=== PATIENT | female | born 1945 | race Caucasian/White ===

== ENCOUNTER → 2023-04-13 09:50 | Outpatient (REF) | payer MEDICARE, OTHER, SELFPAY ==
[2023-04-13 10:13] LABS: % Basophils 1.5 % (0-2); % Eosinophils 4.2 % (0-6); % Immature Granulocytes 0.2 % (0-0.5); % Lymphocytes 19.5 % (20.5-51.1); % Monocytes 8.3 % (1.7-9.3); % Neutrophils 66.3 % (42.2-75.2); Absolute Basophils 0.1 10^3/uL (0-0.2); Absolute Eosinophils 0.2 10^3/uL (0-0.7); Absolute Lymphocytes 0.9 10^3/uL (1.2-3.4); Absolute Monocytes 0.4 10^3/uL (0.1-0.6); Absolute Neutrophils 3.2 10^3/uL (1.4-6.5); Hematocrit 36.6 % (37.0-47.0); Hemoglobin 11.8 g/dL (12.0-16.0); Mean Corp Hgb Conc. 32.2 g/dL (33.0-37.0); Mean Corpuscular Hgb 30.6 pg (27.0-31.0); Mean Corpuscular Volume 94.8 fL (81.0-99.0); Mean Platelet Volume 10.6 fL (7.4-10.4); Nucleated Red Blood Cells % 0 %; Platelet Count 258 10^3/uL (130-400); Red Blood Cell Count 3.86 10^6/uL (4.20-5.40); Red Cell Dist. Width 13.3 % (11.5-14.5); White Blood Cell Count 4.8 10^3/uL (4.8-10.8)
[2023-04-13 10:30] LABS: NT-proBNP 284 pg/ml
[2023-04-13 10:35] LABS: ALT (SGPT) 15 U/L (0-35); AST (SGOT) 24 U/L (14-36); Albumin 3.9 g/dl (3.5-5.0); Alkaline Phosphatase 81 U/L (38-126); Blood Urea Nitrogen 16 mg/dl (7-17); Carbon Dioxide 27 mmol/L (22-30); Chloride 108 mmol/L (98-107); Glucose 102 mg/dl (70-99); HDL Cholesterol 64 mg/dl; LDL Cholesterol, Calculated 134 mg/dl; Potassium 4.5 mmol/L (3.5-5.1); Sodium 138 mmol/L (135-145); Total Bilirubin 0.6 mg/dl (0.2-1.3); Total Cholesterol 214 mg/dl (50-199); Total Protein 6.4 g/dl (6.3-8.2); Triglyceride 84 mg/dl (10-149); Very Low Density Lipoprotein 16 mg/dl (0-30); eGFR > 60.00
[2023-04-13 10:52] LABS: Free T4 1.26 ng/dl (0.78-2.19); Vitamin D, 25-OH*** 52.3 ng/mL (30-80)
[2023-04-13 11:05] LABS: TSH 0.89 uIU/ml (0.47-4.68)
== END ==
LOC: REG 09:50
PROVIDERS: ATTENDING PHYSICIAN Nurse Practitioner Primary Care
DX: E78.2 Mixed hyperlipidemia (principal); I10 Essential (primary) hypertension; E61.1 Iron deficiency; E03.9 Hypothyroidism, unspecified; Z00.00 Encounter for general adult medical examination without abnormal findings; R06.9 Unspecified abnormalities of breathing; E55.9 Vitamin D deficiency, unspecified
CPT/HCPCS: 36415; 80053; 80061; 82306; 83880; 84439; 84443; 85025

== ENCOUNTER → 2023-05-03 08:21 | Outpatient (REF) | payer MEDICARE, OTHER, SELFPAY | LOC: RAD 08:21 | PROVIDERS: ATTENDING PHYSICIAN Nurse Practitioner Primary Care | DX: M85.80 Other specified disorders of bone density and structure, unspecified site (principal); M85.89 Other specified disorders of bone density and structure, multiple sites; Z78.0 Asymptomatic menopausal state; M41.9 Scoliosis, unspecified | CPT/HCPCS: 77080; 93306 ==

== ENCOUNTER → 2023-05-17 09:29 | Outpatient (REF) | payer MEDICARE, OTHER, SELFPAY ==
[2023-05-17 10:14] LABS: % Eosinophils 5.9 % (0-6); % Immature Granulocytes 0.4 % (0-0.5); % Lymphocytes 17.6 % (20.5-51.1); % Neutrophils 67.1 % (42.2-75.2); Absolute Basophils 0.1 10^3/uL (0-0.2); Absolute Eosinophils 0.3 10^3/uL (0-0.7); Absolute Lymphocytes 0.9 10^3/uL (1.2-3.4); Absolute Monocytes 0.4 10^3/uL (0.1-0.6); Absolute Neutrophils 3.5 10^3/uL (1.4-6.5); Hematocrit 35.2 % (37.0-47.0); Hemoglobin 11.5 g/dL (12.0-16.0); Mean Corp Hgb Conc. 32.7 g/dL (33.0-37.0); Mean Corpuscular Hgb 30.3 pg (27.0-31.0); Mean Corpuscular Volume 92.9 fL (81.0-99.0); Mean Platelet Volume 10.3 fL (7.4-10.4); Nucleated Red Blood Cells % 0 %; Platelet Count 232 10^3/uL (130-400); Red Blood Cell Count 3.79 10^6/uL (4.20-5.40); White Blood Cell Count 5.2 10^3/uL (4.8-10.8)
[2023-05-17 10:54] LABS: ALT (SGPT) 13 U/L (0-35); AST (SGOT) 22 U/L (14-36); Albumin 3.9 g/dl (3.5-5.0); Alkaline Phosphatase 73 U/L (38-126); Blood Urea Nitrogen 23 mg/dl (7-17); Calcium 9.4 mg/dl (8.4-10.2); Carbon Dioxide 27 mmol/L (22-30); Chloride 105 mmol/L (98-107); Glucose 99 mg/dl (70-99); HDL Cholesterol 64 mg/dl; Iron 96 ug/dl (37-170); LDL Cholesterol, Calculated 128 mg/dl; Potassium 4.3 mmol/L (3.5-5.1); Sodium 139 mmol/L (135-145); Total Bilirubin 0.5 mg/dl (0.2-1.3); Total Cholesterol 208 mg/dl (50-199); Total Protein 6.3 g/dl (6.3-8.2); Triglyceride 82 mg/dl (10-149); Very Low Density Lipoprotein 16 mg/dl (0-30); eGFR > 60.00
[2023-05-17 11:04] LABS: Percent Saturation 36 % (20-50); Total Iron Binding Capacity 261 ug/dl (265-497)
[2023-05-17 11:19] LABS: Ferritin 34.7 ng/ml (11.1-264.0)
[2023-05-17 12:41] LABS: Folate > 20.0 ng/ml (2.76-20); Vitamin B12 691 pg/ml (239-931)
== END ==
LOC: REG 09:29
PROVIDERS: ATTENDING PHYSICIAN Internal Medicine Hematology & Oncology; FAMILY PHYSICIAN Nurse Practitioner Primary Care
DX: C07 Malignant neoplasm of parotid gland (principal); D50.9 Iron deficiency anemia, unspecified; E78.2 Mixed hyperlipidemia; D64.9 Anemia, unspecified; I10 Essential (primary) hypertension; R73.01 Impaired fasting glucose; R53.83 Other fatigue; Z79.899 Other long term (current) drug therapy
CPT/HCPCS: 36415; 80053; 80061; 82607; 82728; 82746; 83036; 83540; 83550; 85025

== ENCOUNTER → 2023-05-29 10:28 | Outpatient (REF) | payer MEDICARE, OTHER, SELFPAY ==
[2023-05-29 12:44] LABS: Iron 88 ug/dl (37-170)
[2023-05-29 12:55] LABS: Percent Saturation 32 % (20-50); Total Iron Binding Capacity 267 ug/dl (265-497)
== END ==
LOC: REG 10:28
PROVIDERS: ATTENDING PHYSICIAN Internal Medicine Hematology & Oncology; FAMILY PHYSICIAN Internal Medicine Geriatric Medicine
DX: C07 Malignant neoplasm of parotid gland (principal); D50.9 Iron deficiency anemia, unspecified
CPT/HCPCS: 36415; 83540; 83550

== ENCOUNTER → 2023-06-05 15:48 | Outpatient (REF) | payer MEDICARE, OTHER, SELFPAY ==
[2023-06-05 11:25] LABS: % Basophils 1.1 % (0-2); % Eosinophils 4.3 % (0-6); % Immature Granulocytes 0.5 % (0-0.5); % Lymphocytes 15.8 % (20.5-51.1); % Monocytes 6.6 % (1.7-9.3); % Neutrophils 71.7 % (42.2-75.2); Absolute Basophils 0.1 10^3/uL (0-0.2); Absolute Eosinophils 0.3 10^3/uL (0-0.7); Absolute Monocytes 0.4 10^3/uL (0.1-0.6); Absolute Neutrophils 4.7 10^3/uL (1.4-6.5); Hematocrit 38.6 % (37.0-47.0); Hemoglobin 12.1 g/dL (12.0-16.0); Mean Corp Hgb Conc. 31.3 g/dL (33.0-37.0); Mean Corpuscular Volume 95.8 fL (81.0-99.0); Mean Platelet Volume 10.9 fL (7.4-10.4); Nucleated Red Blood Cells % 0 %; Platelet Count 247 10^3/uL (130-400); Red Blood Cell Count 4.03 10^6/uL (4.20-5.40); Red Cell Dist. Width 13.7 % (11.5-14.5); White Blood Cell Count 6.5 10^3/uL (4.8-10.8)
== END ==
LOC: OIDL 15:48
PROVIDERS: ATTENDING PHYSICIAN Internal Medicine Hematology & Oncology
DX: C07 Malignant neoplasm of parotid gland (principal)
CPT/HCPCS: 85025

== ENCOUNTER → 2023-06-20 06:38 | Day surgery (SDC) | payer MEDICARE, OTHER, SELFPAY | LOC: GI 06:38 | PROVIDERS: ATTENDING PHYSICIAN Surgery | DX: K21.9 Gastro-esophageal reflux disease without esophagitis (principal); K44.9 Diaphragmatic hernia without obstruction or gangrene; Q39.9 Congenital malformation of esophagus, unspecified | CPT/HCPCS: 43249 ==

== ENCOUNTER 2023-08-03 14:35 | Outpatient (RCR) | payer MEDICARE, OTHER, SELFPAY ==
[2023-08-03 14:50] VITALS: BP 136/70
[2023-08-03] MEDS: RECLAST 100 IV (15:07)
[2023-08-03 15:30] VITALS: BP 133/66
== END 2023-08-04 09:38 | disposition home or self-care (01) ==
LOC: OID 14:35
PROVIDERS: ATTENDING PHYSICIAN Nurse Practitioner Primary Care
DX: M81.0 Age-related osteoporosis without current pathological fracture (principal)
CPT/HCPCS: 96365; J3489

== ENCOUNTER 2023-08-04 06:32 | Day surgery (SDC) | payer MEDICARE, OTHER, SELFPAY | END 2023-08-04 09:26 | disposition home or self-care (01) | LOC: CATH 06:32 | PROVIDERS: ATTENDING PHYSICIAN Internal Medicine Cardiovascular Disease; FAMILY PHYSICIAN Internal Medicine Geriatric Medicine; OTHER PHYSICIAN Internal Medicine Interventional Cardiology | DX: I08.3 Combined rheumatic disorders of mitral, aortic and tricuspid valves (principal); I10 Essential (primary) hypertension; E78.2 Mixed hyperlipidemia; K21.9 Gastro-esophageal reflux disease without esophagitis; E03.9 Hypothyroidism, unspecified; G25.81 Restless legs syndrome; G47.33 Obstructive sleep apnea (adult) (pediatric); Z85.89 Personal history of malignant neoplasm of other organs and systems; Z87.891 Personal history of nicotine dependence; Z79.82 Long term (current) use of aspirin | CPT/HCPCS: 93312; 93320; 93325 ==

== ENCOUNTER → 2023-08-10 09:32 | Outpatient (REF) | payer MEDICARE, OTHER, SELFPAY | LOC: RAD 09:32 | PROVIDERS: ATTENDING PHYSICIAN Surgery; FAMILY PHYSICIAN Internal Medicine Geriatric Medicine | DX: K44.9 Diaphragmatic hernia without obstruction or gangrene (principal); K30 Functional dyspepsia | CPT/HCPCS: 74246 ==

== ENCOUNTER 2023-08-11 07:54 | Day surgery (SDC) | payer MEDICARE, OTHER, SELFPAY ==
[2023-08-11] VITALS (9 sets, daily range): BP systolic 116–133; BP diastolic 54–75; BMI 29.8
[2023-08-11] MEDS: LOW STRENGTH ASPIRIN 324 MG PO (08:34)
[2023-08-11 08:36] LABS: Hematocrit 36.6 % (37.0-47.0); Hemoglobin 11.8 g/dL (12.0-16.0); Mean Corp Hgb Conc. 32.2 g/dL (33.0-37.0); Mean Corpuscular Volume 96.1 fL (81.0-99.0); Mean Platelet Volume 10.6 fL (7.4-10.4); Platelet Count 284 10^3/uL (130-400); Red Blood Cell Count 3.81 10^6/uL (4.20-5.40); Red Cell Dist. Width 13.5 % (11.5-14.5); White Blood Cell Count 6.5 10^3/uL (4.8-10.8)
[2023-08-11] MEDS: NSS 1000 IV ×2 (08:45→11:18)
[2023-08-11 08:46] LABS: Blood Urea Nitrogen 18 mg/dl (7-17); Calcium 8.7 mg/dl (8.4-10.2); Carbon Dioxide 20 mmol/L (22-30); Chloride 111 mmol/L (98-107); Estimated Creatinine Clearance 59 ml/min; Glucose 107 mg/dl (70-99); Potassium 3.9 mmol/L (3.5-5.1); Sodium 141 mmol/L (135-145); eGFR > 60.00
--- NOTE | 2023-08-11 13:09 | ITS.CL.CATH ---
[facility] - Catheterization
Cardiac Catheterization
Procedure Report:
RIGHT AND LEFT HEART STUDY
Date of Procedure: August 11, 2023
Referring: Dr. Petros Cruz
PROCEDURES:
1. Right heart catheterization
2. Left heart catheterization with coronary and single-plane left ventriculography
INDICATION: This is a 78-year-old female with a past medical history notable for hiatal hernia, esophageal stricture, hypothyroidism, and remote parotid tumor resection in 2010. She presented to our office for evaluation of severe indigestion and
shortness of breath. An echocardiogram was performed and notable for preserved left ventricular systolic function with an estimated ejection fraction of 50%. There was MAC associated mitral stenosis with a mean gradient of 5 mmHg and moderate to
severe mitral regurgitation. She was referred for transesophageal echocardiogram given the moderate to severe mitral regurgitation noted on transthoracic echocardiogram with symptoms of shortness of breath. Her LVEF was estimated at 55%. The left
atrium was found to be moderately dilated and the mitral leaflet was notable for mild posterior leaflet restricted mobility with moderate to severe mitral regurgitation. She is now referred for right and left heart catheterization to evaluate
coronary anatomy in the setting of ongoing symptoms.
ACCESS: Right brachial vein using ultrasound guidance and placement of a 5 Mongolian sheath. Arterial access was obtained in the right radial artery with placement of a 6 Mongolian arterial sheath
HEMODYNAMICS : mmHg
RA (m) : 10
RV (s/d) : 31/7, 12
PA (s/d, m) : 27/16, 20
PCWP (m) : 14
AO (s/d, m) : 128/68, 93
LV (s/d) : 140/10
LVEDP : 24
Estimated Dmitry Cardiac Output: 5.0 L / min and Cardiac Index: 2.9 L/ min / m-2
Systemic vascular resistance: 16.6 Wood units or 1328 [id number])
Pulmonary vascular resistance: 1.2 Wood units or 96 [id number](-5)
CORONARY FINDINGS :
Dominance: Left
LEFT MAIN: Normal
LEFT ANTERIOR DESCENDING: The LAD arises normally from the left main and runs in the anterior interventricular groove. There is a 20% ostial LAD stenosis. The remainder of the LAD is widely patent with the distal vessel wrapping around the apex.
CIRCUMFLEX: The circumflex is a large-caliber dominant vessel. OM1 arises very proximally from the circumflex and is a small caliber vessel. A large bifurcating OM 2 arises from the mid circumflex and bifurcates proximally into 2 large daughter
branches. The circumflex continues in the AV groove supplying a large posterolateral branch and PDA. Only minor irregularities are present
RIGHT CORONARY ARTERY: Small nondominant
VENTRICULOGRAPHY: The digital single-plane left ventricular ejection fraction is estimated at 50%. +2-+3 mitral regurgitation is present
RADIATION SUMMARY: Fluoro Time (min): 5.4, Dose (mGy): 165, DAP (Gy.cm2) : 14.7
CONCLUSIONS
1. Compensated right and left ventricular filling pressures
2. Low normal left ventricular systolic function with +2-+3 mitral regurgitation
3. Nonobstructive coronary disease
RECOMMENDATIONS
1. Medical therapy
2. Repeat echocardiogram in 6-12-month
Copy to: Dr. Petros Cruz
== END 2023-08-11 13:45 | disposition home or self-care (01) ==
LOC: CATH 07:54
PROVIDERS: ATTENDING PHYSICIAN Internal Medicine Interventional Cardiology; FAMILY PHYSICIAN Internal Medicine Geriatric Medicine
DX: I34.0 Nonrheumatic mitral (valve) insufficiency (principal); I25.10 Atherosclerotic heart disease of native coronary artery without angina pectoris; R06.02 Shortness of breath; I11.9 Hypertensive heart disease without heart failure; E03.9 Hypothyroidism, unspecified; K21.9 Gastro-esophageal reflux disease without esophagitis; Z87.891 Personal history of nicotine dependence; Z79.82 Long term (current) use of aspirin
CPT/HCPCS: 80048; 85027; 93460; C1894; Q9967

== ENCOUNTER → 2023-09-18 14:20 | Outpatient (REF) | payer MEDICARE, OTHER, SELFPAY | LOC: RAD 14:20 | PROVIDERS: ATTENDING PHYSICIAN Internal Medicine Gastroenterology; FAMILY PHYSICIAN Internal Medicine Geriatric Medicine | DX: K59.09 Other constipation (principal) | CPT/HCPCS: 74018 ==

== ENCOUNTER → 2023-12-05 09:37 | Outpatient (REF) | payer MEDICARE, OTHER, SELFPAY | LOC: RCS 09:37 | PROVIDERS: ATTENDING PHYSICIAN Internal Medicine Interventional Cardiology; FAMILY PHYSICIAN Nurse Practitioner Primary Care | DX: R06.09 Other forms of dyspnea (principal); I34.9 Nonrheumatic mitral valve disorder, unspecified | CPT/HCPCS: 93017; 93320; 93325; 93350 ==

== ENCOUNTER → 2023-12-06 10:06 | Outpatient (REF) | payer MEDICARE, OTHER, SELFPAY ==
[2023-12-06 11:01] LABS: % Basophils 1.4 % (0-2); % Eosinophils 7.2 % (0-6); % Immature Granulocytes 0.2 % (0-0.5); % Lymphocytes 16.9 % (20.5-51.1); % Monocytes 9.5 % (1.7-9.3); % Neutrophils 64.8 % (42.2-75.2); Absolute Basophils 0.1 10^3/uL (0-0.2); Absolute Eosinophils 0.4 10^3/uL (0-0.7); Absolute Lymphocytes 0.8 10^3/uL (1.2-3.4); Absolute Monocytes 0.5 10^3/uL (0.1-0.6); Absolute Neutrophils 3.2 10^3/uL (1.4-6.5); Hematocrit 38.9 % (37.0-47.0); Hemoglobin 12.4 g/dL (12.0-16.0); Mean Corp Hgb Conc. 31.9 g/dL (33.0-37.0); Mean Corpuscular Hgb 29.7 pg (27.0-31.0); Mean Corpuscular Volume 93.1 fL (81.0-99.0); Mean Platelet Volume 10.8 fL (7.4-10.4); Nucleated Red Blood Cells % 0 %; Platelet Count 272 10^3/uL (130-400); Red Blood Cell Count 4.18 10^6/uL (4.20-5.40); Red Cell Dist. Width 13.1 % (11.5-14.5)
[2023-12-06 12:42] LABS: Iron 100 ug/dl (37-170)
[2023-12-06 12:52] LABS: Percent Saturation 46 % (20-50); Total Iron Binding Capacity 216 ug/dl (265-497)
== END ==
LOC: REG 10:06
PROVIDERS: ATTENDING PHYSICIAN Internal Medicine Hematology & Oncology; FAMILY PHYSICIAN Nurse Practitioner Primary Care
DX: C07 Malignant neoplasm of parotid gland (principal); D50.9 Iron deficiency anemia, unspecified
CPT/HCPCS: 36415; 82728; 83540; 83550; 85025

== ENCOUNTER 2024-02-21 06:44 | Day surgery (SDC) | payer MEDICARE, OTHER, SELFPAY ==
[2024-02-21 12:08] VITALS: BMI 28.4
[2024-02-21 12:09] VITALS: BP 135/69
[2024-02-21 13:33] VITALS: BP 114/61
[2024-02-21 13:45] VITALS: BP 138/82
[2024-02-21 13:55] VITALS: BP 145/76
== END 2024-02-21 14:05 | disposition home or self-care (01) ==
LOC: SDS 06:44
PROVIDERS: ATTENDING PHYSICIAN Surgery
DX: K22.2 Esophageal obstruction (principal); K20.90 Esophagitis, unspecified without bleeding; K21.9 Gastro-esophageal reflux disease without esophagitis; K44.9 Diaphragmatic hernia without obstruction or gangrene
CPT/HCPCS: 43249; C1726

== ENCOUNTER → 2024-04-08 08:50 | Outpatient (REF) | payer MEDICARE, OTHER, SELFPAY | LOC: RCS 08:50 | PROVIDERS: ATTENDING PHYSICIAN Internal Medicine Interventional Cardiology; FAMILY PHYSICIAN Nurse Practitioner Primary Care | DX: I34.0 Nonrheumatic mitral (valve) insufficiency (principal); R06.09 Other forms of dyspnea | CPT/HCPCS: 93306 ==

== ENCOUNTER → 2024-04-16 10:08 | Outpatient (REF) | payer MEDICARE, OTHER, SELFPAY ==
[2024-04-16 11:38] LABS: Glycohemoglobin (HgbA1c) 5.6 % (4.0-5.6)
[2024-04-16 15:37] LABS: ALT (SGPT) 14 U/L (0-35); AST (SGOT) 22 U/L (14-36); Albumin 4.4 g/dl (3.5-5.0); Alkaline Phosphatase 69 U/L (38-126); Blood Urea Nitrogen 22 mg/dl (7-17); Calcium 9.1 mg/dl (8.4-10.2); Carbon Dioxide 24 mmol/L (22-30); Chloride 104 mmol/L (98-107); Glucose 92 mg/dl (70-99); HDL Cholesterol 61 mg/dl; LDL Cholesterol, Calculated 157 mg/dl; Potassium 4.3 mmol/L (3.5-5.1); Sodium 140 mmol/L (135-145); Total Bilirubin 0.7 mg/dl (0.2-1.3); Total Cholesterol 231 mg/dl (50-199); Total Protein 6.7 g/dl (6.3-8.2); Triglyceride 67 mg/dl (10-149); Very Low Density Lipoprotein 13 mg/dl (0-30); eGFR 57.31
== END ==
LOC: REG 10:08
PROVIDERS: ATTENDING PHYSICIAN Nurse Practitioner Primary Care
DX: E78.2 Mixed hyperlipidemia (principal); R73.03 Prediabetes
CPT/HCPCS: 36415; 80053; 80061; 83036

== ENCOUNTER → 2024-04-26 11:49 | Outpatient (REF) | payer MEDICARE, OTHER, SELFPAY ==
[2024-04-26 13:23] LABS: HDL Cholesterol 61 mg/dl; LDL Cholesterol, Calculated 129 mg/dl; Total Cholesterol 210 mg/dl (50-199); Triglyceride 101 mg/dl (10-149); Very Low Density Lipoprotein 20 mg/dl (0-30)
[2024-04-26 14:30] LABS: Folate > 20.0 ng/ml (2.76-20); Vitamin B12 580 pg/ml (239-931)
== END ==
LOC: REG 11:49
PROVIDERS: ATTENDING PHYSICIAN Nurse Practitioner Primary Care
DX: E78.2 Mixed hyperlipidemia (principal); Z79.899 Other long term (current) drug therapy
CPT/HCPCS: 36415; 80061; 82607; 82746; 83735

== ENCOUNTER → 2024-05-10 09:31 | Outpatient (REF) | payer MEDICARE, OTHER, SELFPAY ==
[2024-05-10 10:06] LABS: % Eosinophils 4.8 % (0-6); % Immature Granulocytes 0.2 % (0-0.5); % Lymphocytes 17.6 % (20.5-51.1); % Monocytes 8.8 % (1.7-9.3); % Neutrophils 67.6 % (42.2-75.2); Absolute Basophils 0.1 10^3/uL (0-0.2); Absolute Eosinophils 0.3 10^3/uL (0-0.7); Absolute Lymphocytes 0.9 10^3/uL (1.2-3.4); Absolute Monocytes 0.5 10^3/uL (0.1-0.6); Absolute Neutrophils 3.6 10^3/uL (1.4-6.5); Hematocrit 36.3 % (37.0-47.0); Hemoglobin 11.9 g/dL (12.0-16.0); Mean Corp Hgb Conc. 32.8 g/dL (33.0-37.0); Mean Corpuscular Hgb 31.3 pg (27.0-31.0); Mean Corpuscular Volume 95.5 fL (81.0-99.0); Mean Platelet Volume 10.6 fL (7.4-10.4); Nucleated Red Blood Cells % 0 %; Platelet Count 186 10^3/uL (130-400); Red Cell Dist. Width 13.3 % (11.5-14.5); White Blood Cell Count 5.2 10^3/uL (4.8-10.8)
[2024-05-10 10:32] LABS: Iron 111 ug/dl (37-170)
[2024-05-10 10:42] LABS: Percent Saturation 50 % (20-50); Total Iron Binding Capacity 219 ug/dl (265-497)
[2024-05-10 10:55] LABS: Free T4 1.23 ng/dl (0.78-2.19); Vitamin D, 25-OH*** 74.3 ng/mL (30-80)
[2024-05-10 11:08] LABS: TSH 1.86 uIU/ml (0.47-4.68)
== END ==
LOC: REG 09:31
PROVIDERS: ATTENDING PHYSICIAN Internal Medicine Hematology & Oncology; FAMILY PHYSICIAN Nurse Practitioner Primary Care
DX: C07 Malignant neoplasm of parotid gland (principal); D50.9 Iron deficiency anemia, unspecified; E03.9 Hypothyroidism, unspecified; E55.9 Vitamin D deficiency, unspecified; K21.00 Gastro-esophageal reflux disease with esophagitis, without bleeding; K22.4 Dyskinesia of esophagus
CPT/HCPCS: 36415; 82306; 82728; 83540; 83550; 84439; 84443; 85025

== ENCOUNTER → 2024-08-10 08:04 | Outpatient (REF) | payer MEDICARE, OTHER, SELFPAY ==
[2024-08-10 09:06] LABS: ALT (SGPT) 15 U/L (0-35); AST (SGOT) 21 U/L (14-36); Albumin 4.2 g/dl (3.5-5.0); Alkaline Phosphatase 51 U/L (38-126); Blood Urea Nitrogen 26 mg/dl (7-17); Calcium 9.1 mg/dl (8.4-10.2); Carbon Dioxide 21 mmol/L (22-30); Chloride 112 mmol/L (98-107); Glucose 110 mg/dl (70-99); Potassium 4.4 mmol/L (3.5-5.1); Sodium 140 mmol/L (135-145); Total Bilirubin 0.5 mg/dl (0.2-1.3); Total Protein 6.4 g/dl (6.3-8.2); eGFR > 60.00
== END ==
LOC: REG 08:04
PROVIDERS: ATTENDING PHYSICIAN Nurse Practitioner Primary Care
DX: M17.11 Unilateral primary osteoarthritis, right knee (principal); I10 Essential (primary) hypertension
CPT/HCPCS: 36415; 80053

== ENCOUNTER 2024-08-13 14:30 | Outpatient (RCR) | payer MEDICARE, OTHER, SELFPAY ==
[2024-08-13 14:46] VITALS: BP 146/65
[2024-08-13] MEDS: RECLAST 100 IV (14:59)
[2024-08-13 16:05] VITALS: BP 134/61
== END 2024-08-14 09:41 | disposition home or self-care (01) ==
LOC: OID 14:30
PROVIDERS: ATTENDING PHYSICIAN Nurse Practitioner Primary Care
DX: M81.0 Age-related osteoporosis without current pathological fracture (principal)
CPT/HCPCS: 96365; J3489

== ENCOUNTER → 2024-08-15 08:37 | Outpatient (REF) | payer MEDICARE, OTHER, SELFPAY ==
[2024-08-15 09:16] LABS: % Basophils 0.6 % (0-2); % Eosinophils 3.2 % (0-6); % Immature Granulocytes 0.4 % (0-0.5); % Lymphocytes 7.4 % (20.5-51.1); % Monocytes 7.4 % (1.7-9.3); Absolute Basophils 0.1 10^3/uL (0-0.2); Absolute Eosinophils 0.3 10^3/uL (0-0.7); Absolute Lymphocytes 0.7 10^3/uL (1.2-3.4); Absolute Monocytes 0.7 10^3/uL (0.1-0.6); Hematocrit 35.4 % (37.0-47.0); Hemoglobin 11.5 g/dL (12.0-16.0); Mean Corp Hgb Conc. 32.5 g/dL (33.0-37.0); Mean Corpuscular Hgb 31.2 pg (27.0-31.0); Mean Corpuscular Volume 95.9 fL (81.0-99.0); Mean Platelet Volume 10.4 fL (7.4-10.4); Nucleated Red Blood Cells % 0 %; Platelet Count 201 10^3/uL (130-400); Red Blood Cell Count 3.69 10^6/uL (4.20-5.40); Red Cell Dist. Width 13.2 % (11.5-14.5); White Blood Cell Count 9.9 10^3/uL (4.8-10.8)
[2024-08-15 10:02] LABS: Iron 42 ug/dl (37-170); Magnesium 1.9 mg/dl (1.6-2.3); Total Cholesterol 200 mg/dl (50-199); Triglyceride 61 mg/dl (10-149); Very Low Density Lipoprotein 12 mg/dl (0-30)
[2024-08-15 10:07] LABS: Free T4 1.06 ng/dl (0.78-2.19)
[2024-08-15 10:12] LABS: Percent Saturation 16 % (20-50); Total Iron Binding Capacity 250 ug/dl (265-497)
[2024-08-15 10:15] LABS: HDL Cholesterol 65 mg/dl; LDL Cholesterol, Calculated 123 mg/dl
[2024-08-15 10:22] LABS: TSH 1.45 uIU/ml (0.47-4.68)
[2024-08-15 10:56] LABS: Ferritin 99.2 ng/ml (11.1-264.0)
== END ==
LOC: REG 08:37
PROVIDERS: ATTENDING PHYSICIAN Internal Medicine Hematology & Oncology; FAMILY PHYSICIAN Nurse Practitioner Primary Care
DX: C07 Malignant neoplasm of parotid gland (principal); D50.9 Iron deficiency anemia, unspecified; K21.00 Gastro-esophageal reflux disease with esophagitis, without bleeding; K22.4 Dyskinesia of esophagus; E03.9 Hypothyroidism, unspecified; E78.2 Mixed hyperlipidemia
CPT/HCPCS: 36415; 80061; 82728; 83540; 83550; 83735; 84439; 84443; 85025

== ENCOUNTER → 2024-09-12 14:08 | Outpatient (REF) | payer MEDICARE, OTHER, SELFPAY | LOC: PAVMRI 14:08 | PROVIDERS: ATTENDING PHYSICIAN Physician Assistant; FAMILY PHYSICIAN Nurse Practitioner Primary Care | DX: K86.2 Cyst of pancreas (principal) | CPT/HCPCS: 74183; A9575 ==

== ENCOUNTER → 2024-11-18 11:50 | Outpatient (REF) | payer MEDICARE, OTHER, SELFPAY ==
[2024-11-18 12:38] LABS: Hematocrit 36.1 % (37.0-47.0); Hemoglobin 11.6 g/dL (12.0-16.0); Mean Corp Hgb Conc. 32.1 g/dL (33.0-37.0); Mean Corpuscular Volume 96.5 fL (81.0-99.0); Nucleated Red Blood Cells % 0 %; Platelet Count 232 10^3/uL (130-400); Red Cell Dist. Width 13.1 % (11.5-14.5)
[2024-11-18 12:43] LABS: Iron 74 ug/dl (37-170)
[2024-11-18 12:53] LABS: Total Iron Binding Capacity 238 ug/dl (265-497)
[2024-11-18 13:51] LABS: Ferritin 90.7 ng/ml (11.1-264.0)
== END ==
LOC: REG 11:50
PROVIDERS: ATTENDING PHYSICIAN Internal Medicine Hematology & Oncology; FAMILY PHYSICIAN Nurse Practitioner Primary Care
DX: C07 Malignant neoplasm of parotid gland (principal); D50.9 Iron deficiency anemia, unspecified
CPT/HCPCS: 36415; 82728; 83540; 83550; 85025

== ENCOUNTER → 2025-01-21 08:24 | Outpatient (REF) | payer MEDICARE, OTHER, SELFPAY | LOC: DHSLP 08:24 | PROVIDERS: ATTENDING PHYSICIAN Otolaryngology Facial Plastic Surgery | DX: G47.33 Obstructive sleep apnea (adult) (pediatric) (principal) | CPT/HCPCS: 95800 ==